=== PATIENT | female | born 1975 | race Caucasian/White ===

== ENCOUNTER 2017-12-27 04:53 | Inpatient (IN) | payer SELFPAY ==
[2017-12-27] VITALS (11 sets, daily range): BP systolic 112–162; BP diastolic 55–90; PULSE 85–119; RESP 18–24; TEMP 96.6–98.6; O2SAT 98–99
[~2017-12-27] VITALS: Ht 157.5 cm; Wt 84.0 kg
[2017-12-27] MEDS ORDERED: methylPREDNISolone SOD SUCC 125 MG/2 ML VIAL IV PUSH ONE (05:00)
[2017-12-27] MEDS ORDERED: SODIUM CHLORIDE 0.9% FLUSH 10 ML FLUSH IVF PRN (05:00)
--- NOTE | 2017-12-27 05:07 | PD ---
HPI Chief Complaint: Asthma attack Time Seen by Provider: 04:56 Travel History International Travel<30 days: No Contact w/Intl Traveler<30days: No History of Present Illness HPI Patient presents to the emergency department complaining of shortness of breath upon awakening this morning. She is a known asthmatic with her last asthma attack me being 3 months ago. States that she has a history of being intubated. Advises that she also did not have her emergency inhaler and has only been using her Symbicort. She believes that she had a fever on yesterday, but denies chest pain, edema, recent travel, chills. PFSH Social History Tobacco Use: No Allergies-Medications (Allergen,Severity, Reaction): Coded Allergies: promethazine (Verified Allergy, Severe, Hives, 12/27/17) Review of Systems Except as stated in HPI: all other systems reviewed are Neg Physical Exam Narrative GENERAL: In respiratory distress, audible wheezes without using stethoscope SKIN: Focused skin assessment warm/dry. HEAD: Atraumatic. Normocephalic. EYES: Pupils equal and round. No scleral icterus. No injection or drainage. ENT: No nasal bleeding or discharge. Mucous membranes pink and moist. NECK: Trachea midline. No JVD. CARDIOVASCULAR: Regular rate and rhythm. No murmur appreciated. RESPIRATORY: Positive retractions, poor air movement bilaterally, positive inspiratory and expiratory wheezing bilateral GASTROINTESTINAL: Abdomen soft, non-tender, nondistended. Hepatic and splenic margins not palpable. MUSCULOSKELETAL: No obvious deformities. No clubbing. No cyanosis. No edema. NEUROLOGICAL: Awake and alert. No obvious cranial nerve deficits. Motor grossly within normal limits. Normal speech. PSYCHIATRIC: Appropriate mood and affect; insight and judgment normal. Data Data Last Documented VS Vital Signs Date Time Temp Pulse Resp B/P (MAP) Pulse Ox O2 Delivery O2 Flow Rate FiO2 12/27/17 07:44 18 99 Room Air 12/27/17 07:44 12/27/17 07:42 98.2 85 12/27/17 05:00 2.00 Orders Orders Complete Blood Count With Diff (12/27/17 05:00) Comprehensive Metabolic Panel (12/27/17 05:00) Iv Access Insert/Monitor (12/27/17 05:00) Electrocardiogram (12/27/17 05:00) Ecg Monitoring (12/27/17 05:00) Oximetry (12/27/17 05:00) Oxygen Administration (12/27/17 05:00) Chest, Single Ap (12/27/17 05:00) Sodium Chloride 0.9% Flush (Ns Flush) (12/27/17 05:00) Methylprednisolone So Succ Inj (Solumedr (12/27/17 05:00) Albuterol-Ipratropium Neb (Duoneb Neb) (12/27/17 05:00) Albuterol-Ipratropium Neb (Duoneb Neb) (12/27/17 05:45) B-Type Natriuretic Peptide (12/27/17 06:55) Ckmb (Isoenzyme) Profile (12/27/17 06:55) D-Dimer (12/27/17 06:55) Prothrombin Time / Inr (Pt) (12/27/17 06:55) Act Partial Throm Time (Ptt) (12/27/17 06:55) Troponin I (12/27/17 06:55) Admit To Inpatient (12/27/17 ) Vital Signs (Adult) Q4H (12/27/17 07:38) Diet Regular Basic (12/27/17 Breakfast) Sodium Chloride 0.9% Flush (Ns Flush) (12/27/17 09:00) Sodium Chloride 0.9% Flush (Ns Flush) (12/27/17 07:45) Albuterol Neb (Albuterol Neb) (12/27/17 07:45) Albuterol-Ipratropium Neb (Duoneb Neb) (12/27/17 08:00) Resp Peak Flow Rate (12/27/17 ) Resp Oxygen Robin C Titrat 1-4 L (12/27/17 ) Methylprednisolone So Succ Inj (Solumedr (12/27/17 11:00) Enoxaparin Inj (Lovenox Inj) (12/27/17 09:00) Admit Order (Ed Use Only) (12/27/17 07:43) Labs Laboratory Tests Test 12/27/17 05:05 12/27/17 07:05 White Blood Count 6.5 TH/MM3 Red Blood Count 4.99 MIL/MM3 Hemoglobin 11.5 GM/DL Hematocrit 36.2 % Mean Corpuscular Volume 72.5 FL Mean Corpuscular Hemoglobin 23.0 PG Mean Corpuscular Hemoglobin Concent 31.7 % Red Cell Distribution Width 14.0 % Platelet Count 197 TH/MM3 Mean Platelet Volume 8.8 FL Neutrophils (%) (Auto) 50.5 % Lymphocytes (%) (Auto) 32.5 % Monocytes (%) (Auto) 10.6 % Eosinophils (%) (Auto) 5.1 % Basophils (%) (Auto) 1.3 % Neutrophils # (Auto) 3.3 TH/MM3 Lymphocytes # (Auto) 2.1 TH/MM3 Monocytes # (Auto) 0.7 TH/MM3 Eosinophils # (Auto) 0.3 TH/MM3 Basophils # (Auto) 0.1 TH/MM3 CBC Comment AUTO DIFF Differential Comment AUTO DIFF CONFIRMED Ovalocytes 1+ Blood Urea Nitrogen 13 MG/DL Creatinine 0.81 MG/DL Random Glucose 121 MG/DL Total Protein 6.5 GM/DL Albumin 3.1 GM/DL Calcium Level 8.1 MG/DL Alkaline Phosphatase 76 U/L Aspartate Amino Transf (AST/SGOT) 17 U/L Alanine Aminotransferase (ALT/SGPT) 17 U/L Total Bilirubin 0.2 MG/DL Sodium Level 142 MEQ/L Potassium Level 3.7 MEQ/L Chloride Level 109 MEQ/L Carbon Dioxide Level 23.8 MEQ/L Anion Gap 9 MEQ/L Estimat Glomerular Filtration Rate 78 ML/MIN Prothrombin Time 10.0 SEC Prothromb Time International Ratio 1.0 RATIO Activated Partial Thromboplast Time 25.9 SEC D-Dimer Quantitative (PE/DVT) 0.27 MG/L FEU Total Creatine Kinase 82 U/L Troponin I LESS THAN 0.02 NG/ML B-Type Natriuretic Peptide 45 PG/ML MDM Medical Decision Making Medical Screen Exam Complete: Yes Emergency Medical Condition: Yes Interpretation(s) Labs: Glucose elevated and hemoglobin slightly decreased; coags and d-dimer and cardiac enzymes within normal limits. EKG: Sinus rhythm, rate approximately 80, normal axis, no STEMI Last Impressions Chest X-Ray 12/27/17 0500 Signed Impressions: CONCLUSION: No acute cardiopulmonary process. Differential Diagnosis Pulmonary edema, asthma exacerbation, pleural effusion, ACS, PE Narrative Course Patient presents to the emergency department in respiratory distress and states symptoms are consistent with prior asthma exacerbations patient placed on charge authorizer, IV access obtained, 2 L oxygen via nasal cannula. 3 duo nebs order, 125 mg IV methylprednisolone, chest x-ray, EKG, and labs ordered. After 3 consecutive duo nebs in the emergency department and IV steroids patient states that she only marginally felt better. Order an additional 2 duo nebs after which she states that she felt better but still having shortness of breath. The wheezing is improved and air movement is better after the fifth DuoNeb. She is also complaining of sternal chest pain; therefore, cardiac enzymes and coags with d-dimer has been ordered. Patient will be admitted for chest pain and asthma exacerbation. Diagnosis Primary Impression: Asthma exacerbation Qualified Codes: J45.51 - Severe persistent asthma with (acute) exacerbation Additional Impression: Chest pain Qualified Codes: R07.9 - Chest pain, unspecified Admitting Information Admitting Physician Requests: Admit Condition: Stable Marlen Mcfadden MD Dec 27, 2017 05:07
[2017-12-27] MEDS: RESP: ALBUTEROL 2.5 MG/IPRATROPIUM 0.5 MG NEB (SCH) INH ×4 (05:09→05:56)
[2017-12-27 05:16] LABS: AUTOMATED NEUTROPHIL # 3.3 TH/MM3 (1.8-7.7); BASOPHIL # 0.1 TH/MM3 (0-0.2); BASOPHIL % 1.3 % (0.0-2.0); EOSINOPHIL # 0.3 TH/MM3 (0-0.4); EOSINOPHIL % 5.1 % (0.0-4.0); HEMATOCRIT 36.2 % (35.0-46.0); HEMOGLOBIN 11.5 GM/DL (11.6-15.3); LYMPH % 32.5 % (9.0-44.0); LYMPHOCYTE # 2.1 TH/MM3 (1.0-4.8); MEAN CELL VOLUME 72.5 FL (80.0-100.0); MEAN CORPUSCULAR HGB CONC 31.7 % (32.0-36.0); MEAN PLATELET VOLUME 8.8 FL (7.0-11.0); MONO % 10.6 % (0.0-8.0); MONOCYTE # 0.7 TH/MM3 (0-0.9); NEUT % 50.5 % (16.0-70.0); PLATELET COUNT 197 TH/MM3 (150-450); RED BLOOD COUNT 4.99 MIL/MM3 (4.00-5.30); WHITE BLOOD COUNT 6.5 TH/MM3 (4.0-11.0)
[2017-12-27 05:40] LABS: CHLORIDE 109 MEQ/L (98-107); SODIUM (NA) 142 MEQ/L (136-145)
[2017-12-27 05:43] LABS: ALBUMIN 3.1 GM/DL (3.4-5.0); BICARBONATE 23.8 MEQ/L (21.0-32.0); CALCIUM 8.1 MG/DL (8.5-10.1); GLUCOSE,RANDOM 121 MG/DL (74-106)
[2017-12-27 05:44] LABS: BLOOD UREA NITROGEN 13 MG/DL (7-18)
[2017-12-27 05:46] LABS: ALT (GPT) 17 U/L (10-53); AST (GOT) 17 U/L (15-37)
[2017-12-27 05:47] LABS: CREATININE 0.81 MG/DL (0.50-1.00); GLOMERULAR FILTRATION RATE 78 ML/MIN (>89)
[2017-12-27 05:48] LABS: TOTAL BILIRUBIN ADULT 0.2 MG/DL (0.2-1.0); TOTAL PROTEIN 6.5 GM/DL (6.4-8.2)
[2017-12-27 05:49] LABS: ALKALINE PHOSPHATASE 76 U/L (45-117)
--- NOTE | 2017-12-27 05:49 | RADRPT ---
EXAM DATE: 12/27/2017 5:36 AM EDT AGE/SEX: 42 years / Female INDICATIONS: Shortness of breath. CLINICAL DATA: This is the patient's initial encounter. Patient reports that signs and symptoms have been present for 1 day and indicates a pain score of 0/10. MEDICAL/SURGICAL HISTORY: None. None. COMPARISON: No prior [place] exams available for comparison. FINDINGS: A single AP view of the chest demonstrates the lungs to be symmetrically aerated without evidence of mass, infiltrate or effusion. The cardiomediastinal contours are unremarkable. Osseous structures a re intact. CONCLUSION: No acute cardiopulmonary process. Electronically signed by: Solo Rincon MD 12/27/2017 5:48 AM EDT
[2017-12-27 05:52] LABS: OVALOCYTES 1+ (NORMAL)
[2017-12-27 07:35] LABS: TROPONIN I LESS THAN 0.02 NG/ML (0.02-0.05)
[2017-12-27 07:39] LABS: D-DIMER 0.27 MG/L FEU (0.00-0.50)
[2017-12-27] MEDS ORDERED: SODIUM CHLORIDE 0.9% FLUSH 10 ML FLUSH IV FLUSH PRN (07:45)
[2017-12-27] MEDS ORDERED: RESP: ALBUTEROL 1.25 MG/3 ML NEB (PRN) NEB (07:45)
[2017-12-27] MEDS: SODIUM CHLORIDE 0.9% FLUSH 10 ML FLUSH IV FLUSH SCH ×2 (07:55→20:40)
[2017-12-27] MEDS: ENOXAPARIN SODIUM 40 MG/0.4 ML SYRINGE SQ SCH (07:55)
[2017-12-27] MEDS: RESP: ALBUTEROL 2.5 MG/IPRATROPIUM 0.5 MG NEB (SCH) NEB ×3 (09:43→19:24)
[2017-12-27] MEDS ORDERED: methylPREDNISolone SOD SUCC 125 MG/2 ML VIAL IV PUSH SCH (11:00)
--- NOTE | 2017-12-27 11:38 | HHI.HP ---
[facility] No Primary Care Physician Admission Diagnosis asthma exacerbation, chest pain Diagnoses: Chief Complaint: Shortness of breath Travel History International Travel<30 Days: No Contact w/Intl Traveler <30 Da: No Traveled to Known Affected Are: No History of Present Illness This patient is a 42-year-old female came in with acute respiratory failure secondary to likely asthma exacerbation. She had been taking Symbicort at home and noted that she had increased work of breathing over the last 24 hours. Patient was admitted through the emergency room. She reports several intubations during her lifetime. She has been intubated at least twice. Most recently in [place] in 2016. Recently she relocated from [place] and only had Symbicort as an inhaler or treatment. She was recently discharged from an emergency room for pneumonia. Patient had a fever previously but did not have any further fever. It was subjective fever. Patient did come in and received nebulized bronchodilators with minimal improvement. She was been recommended for further evaluation after increased work of breathing with ambulation. Review of Systems Constitutional: DENIES: Diaphoretic episodes, Fatigue, Fever, Weight gain, Weight loss, Chills, Dizziness, Change in appetite, Night Sweats Endocrine: DENIES: Abnorml menstrual pattern, Heat/cold intolerance, Polydipsia , Polyuria, Polyphagia Eyes: DENIES: Blurred vision, Diplopia, Eye inflammation, Eye pain, Vision loss , Photosensitivity, Double Vision Ears, nose, mouth, throat: DENIES: Tinnitus, Hearing loss, Vertigo, Nasal discharge, Oral lesions, Throat pain, Hoarseness, Ear Pain, Running Nose, Epistaxis, Sinus Pain, Toothache, Odynophagia Respiratory: COMPLAINS OF: Wheezing, Shortness of breath, DENIES: Apneas, Cough , Snoring, Hemoptysis, Sputum production Gastrointestinal: DENIES: Abdominal pain, Black stools, Bloody stools, Constipation, Diarrhea, Nausea, Vomiting, Difficulty Swallowing, Anorexia Genitourinary: DENIES: Abnormal vaginal bleeding, Dysmenorrhea, Dyspareunia, Sexual dysfunction, Urinary frequency, Urinary incontinence, Urgency, Hematuria , Dysuria, Nocturia, Vaginal discharge Musculoskeletal: DENIES: Joint pain, Muscle aches, Stiffness, Joint Swelling, Back pain, Neck pain Integumentary: DENIES: Abnormal pigmentation, Pruritus, Rash, Nail changes, Breast masses, Breast skin changes, Nipple discharge Hematologic/lymphatic: DENIES: Bruising, Lymphadenopathy Immunologic/allergic: DENIES: Eczema, Urticaria Neurologic: DENIES: Abnormal gait, Headache, Localized weakness, Paresthesias, Seizures, Speech Problems, Tremor, Poor Balance Psychiatric: DENIES: Anxiety, Confusion, Mood changes, Depression, Hallucinations, Agitation, Suicidal Ideation, Homicidal Ideation, Delusions Except as stated in HPI: all other systems reviewed are Neg Past Family Social History Past Medical History Asthma Past Surgical History Denies Reported Medications Symbicort Allergies: Coded Allergies: promethazine (Verified Allergy, Severe, Hives, 12/27/17) Active Ordered Medications Reviewed in the EMR Family History Father is alive and well at 85, mother from ovarian cancer at 45 Social History Recently relocated from [place] In July Physical Exam Vital Signs Vital Signs Date Time Temp Pulse Resp B/P (MAP) Pulse Ox O2 Delivery O2 Flow Rate FiO2 12/27/17 09:45 98 21 12/27/17 09:00 98.3 90 20 129/65 (86) 98 12/27/17 08:45 12/27/17 07:44 18 99 Room Air 12/27/17 07:44 99 Room Air 12/27/17 07:42 98.2 85 18 135/70 (91) 99 Room Air 12/27/17 05:00 111 22 162/85 (110) 98 Nasal Cannula 2.00 12/27/17 05:00 98 Room Air 12/27/17 05:00 98 2.00 12/27/17 05:00 98.6 89 24 150/90 (110) 99 Physical Exam GENERAL: This is a well-nourished, well-developed patient, in no apparent distress. SKIN: No rashes, ecchymoses or lesions. Cool and dry. HEAD: Atraumatic. Normocephalic. No temporal or scalp tenderness. EYES: Pupils equal round and reactive. Extraocular motions intact. No scleral icterus. No injection or drainage. ENT: Nose without bleeding, purulent drainage or septal hematoma. Throat without erythema, tonsillar hypertrophy or exudate. Uvula midline. Airway patent. NECK: Trachea midline. No JVD or lymphadenopathy. Supple, nontender, no meningeal signs. CARDIOVASCULAR: Regular rate and rhythm without murmurs, gallops, or rubs. RESPIRATORY: Clear to auscultation. Breath sounds equal bilaterally. No wheezes , rales, or rhonchi. GASTROINTESTINAL: Abdomen soft, non-tender, nondistended. No hepato-splenomegaly , or palpable masses. No guarding. MUSCULOSKELETAL: Extremities without clubbing, cyanosis, or edema. No joint tenderness, effusion, or edema noted. No calf tenderness. Negative Homans sign bilaterally. NEUROLOGICAL: Awake and alert. Cranial nerves II through XII intact. Motor and sensory grossly within normal limits. Five out of 5 muscle strength in all muscle groups. Normal speech. Laboratory Laboratory Tests Test 12/27/17 05:05 12/27/17 07:05 White Blood Count 6.5 Red Blood Count 4.99 Hemoglobin 11.5 Hematocrit 36.2 Mean Corpuscular Volume 72.5 Mean Corpuscular Hemoglobin 23.0 Mean Corpuscular Hemoglobin Concent 31.7 Red Cell Distribution Width 14.0 Platelet Count 197 Mean Platelet Volume 8.8 Neutrophils (%) (Auto) 50.5 Lymphocytes (%) (Auto) 32.5 Monocytes (%) (Auto) 10.6 Eosinophils (%) (Auto) 5.1 Basophils (%) (Auto) 1.3 Neutrophils # (Auto) 3.3 Lymphocytes # (Auto) 2.1 Monocytes # (Auto) 0.7 Eosinophils # (Auto) 0.3 Basophils # (Auto) 0.1 CBC Comment AUTO DIFF Differential Comment AUTO DIFF CONFIRMED Ovalocytes 1+ Blood Urea Nitrogen 13 Creatinine 0.81 Random Glucose 121 Total Protein 6.5 Albumin 3.1 Calcium Level 8.1 Alkaline Phosphatase 76 Aspartate Amino Transf (AST/SGOT) 17 Alanine Aminotransferase (ALT/SGPT) 17 Total Bilirubin 0.2 Sodium Level 142 Potassium Level 3.7 Chloride Level 109 Carbon Dioxide Level 23.8 Anion Gap 9 Estimat Glomerular Filtration Rate 78 Prothrombin Time 10.0 Prothromb Time International Ratio 1.0 Activated Partial Thromboplast Time 25.9 D-Dimer Quantitative (PE/DVT) 0.27 Total Creatine Kinase 82 Troponin I LESS THAN 0.02 B-Type Natriuretic Peptide 45 Result Diagram: 12/27/17 0505 12/27/17 0505 Imaging Last Impressions Chest X-Ray 12/27/17 0500 Signed Impressions: CONCLUSION: No acute cardiopulmonary process. Caprini VTE Risk Assessment Caprini VTE Risk Assessment: No/Low Risk (score <= 1) Caprini Risk Assessment Model Point Value = 1 Point Value = 2 Point Value = 3 Point Value = 5 Age 41-60 Minor surgery BMI > 25 kg/m2 Swollen legs Varicose veins or History of unexplained or recurrent spontaneous Oral contraceptives or hormone replacement Sepsis (< 1 month) Serious lung disease, including pneumonia (< 1 month) Abnormal pulmonary function Acute myocardial infarction Congestive heart failure (< 1 month) History of inflammatory bowel disease Medical patient at bed rest Age 61-74 Arthroscopic surgery Major open surgery (> 45 min) Laparoscopic surgery (> 45 min) Malignancy Confined to bed (> 72 hours) Immobilizing plaster cast Central venous access Age >= 75 History of VTE Family history of VTE Factor V Leiden Prothrombin [id number] Lupus anticoagulant Anticardiolipin antibodies Elevated serum homocysteine Heparin-induced thrombocytopenia Other congenital or acquired thrombophilia Stroke (< 1 month) Elective arthroplasty Hip, pelvis, or leg fracture Acute spinal cord injury (< 1 month) Prophylaxis Regimen Total Risk Factor Score Risk Level Prophylaxis Regimen 0-1 Low Early ambulation 2 Moderate Order ONE of the following: *Sequential Compression Device (SCD) *Heparin 5000 units SQ BID 3-4 Higher Order ONE of the following medications: *Heparin 5000 units SQ TID *Enoxaparin/Lovenox 40 mg SQ daily (WT < 150 kg, CrCl > 30 mL/min) *Enoxaparin/Lovenox 30 mg SQ daily (WT < 150 kg, CrCl > 10-29 mL/min) *Enoxaparin/Lovenox 30 mg SQ BID (WT < 150 kg, CrCl > 30 mL/min) AND/OR *Sequential Compression Device (SCD) 5 or more Highest Order ONE of the following medications: *Heparin 5000 units SQ TID (Preferred with Epidurals) *Enoxaparin/Lovenox 40 mg SQ daily (WT < 150 kg, CrCl > 30 mL/min) *Enoxaparin/Lovenox 30 mg SQ daily (WT < 150 kg, CrCl > 10-29 mL/min) *Enoxaparin/Lovenox 30 mg SQ BID (WT < 150 kg, CrCl > 30 mL/min) AND *Sequential Compression Device (SCD) Assessment and Plan Problem List: (1) Asthma exacerbation ICD Code: J45.901 - Unspecified asthma with (acute) exacerbation Status: Acute Plan: continue Nebulized bronchodilators Continue IV steroids Follow peak flow O2 as needed Activity ad terra. Code Status Full code Discussed Condition With Full code full code patient, ER MD Dr. De La Torre Physician Certification 2 Midnight Certification Type: Admission for Inpatient Services Order for Inpatient Services The services are ordered in accordance with Medicare regulations or non- Medicare payer requirements, as applicable. In the case of services not specified as inpatient-only, they are appropriately provided as inpatient services in accordance with the 2-midnight benchmark. Estimated LOS (days): 2 2 days is the estimated time the patient will need to remain in the hospital, assuming treatment plan goals are met and no additional complications. Post-Hospital Plan: Home Problem Qualifiers (1) Asthma exacerbation: Qualified Codes: J45.51 - Severe persistent asthma with (acute) exacerbation Lynne Pang MD Dec 27, 2017 11:38
--- NOTE | 2017-12-27 14:37 | EKG ---
Date Performed: 12/27/2017 Time Performed: 05:07:40 PTAGE: 42 years EKG: Sinus rhythm Within normal limits NO PREVIOUS TRACING DOCTOR: Toan Ellsworth Interpretating Date/Time 12/27/2017 14:35:38
[2017-12-27] MEDS ORDERED: IBUPROFEN 600 MG TAB PO ONE (15:45)
[2017-12-27] MEDS: methylPREDNISolone SOD SUCC 125 MG/2 ML VIAL IV PUSH SCH (20:39)
[2017-12-27] MEDS: BUDESONIDE-FORMOTEROL 80/4.5 MCG INHALER INH SCH (20:40)
[2017-12-28] MEDS ORDERED: ACETAMINOPHEN 325 MG TAB PO PRN (01:15)
[2017-12-28] MEDS: methylPREDNISolone SOD SUCC 125 MG/2 ML VIAL IV PUSH SCH (05:18)
[2017-12-28] MEDS: RESP: ALBUTEROL 2.5 MG/IPRATROPIUM 0.5 MG NEB (SCH) NEB (07:17)
[2017-12-28 07:20] VITALS: O2SAT 99
[2017-12-28 07:50] VITALS: BP 130/68; PULSE 110; RESP 20; TEMP 96.6; O2SAT 96
[2017-12-28] MEDS ORDERED: PRED10PA PO (07:58)
[2017-12-28] MEDS ORDERED: VENTAER INH (07:58)
--- NOTE | 2017-12-28 07:58 | HHI.DCPOC ---
Discharge Care Plan Diagnosis: (1) Asthma exacerbation Goals to Promote Your Health * To prevent worsening of your condition and complications * To maintain your health at the optimal level Directions to Meet Your Goals Take your medications as prescribed Follow your dietary instruction Follow activity as directed Keep your appointments as scheduled Take your immunizations and boosters as scheduled If your symptoms worsen call your PCP, if no PCP go to Urgent Care Center or Emergency Room Smoking is Dangerous to Your Health. Avoid second hand smoke Call the 24-hour hour crisis hotline for domestic abuse at Lynne Pang MD Dec 28, 2017 07:58
[2017-12-28] MEDS: BUDESONIDE-FORMOTEROL 80/4.5 MCG INHALER INH SCH (08:20)
[2017-12-28] MEDS: ENOXAPARIN SODIUM 40 MG/0.4 ML SYRINGE SQ SCH (08:21)
[2017-12-28] MEDS: SODIUM CHLORIDE 0.9% FLUSH 10 ML FLUSH IV FLUSH SCH (08:22)
--- NOTE | 2017-12-28 09:13 | HHI.DS ---
Discharge Summary Admission Date Dec 27, 2017 at 07:44 Discharge Date: Dec 28, 2017 Admitting Diagnosis asthma exacerbation, chest pain (1) Asthma exacerbation ICD Code: J45.901 - Unspecified asthma with (acute) exacerbation Status: Acute Procedures None Brief History - From Admission This patient is a 42-year-old female came in with acute respiratory failure secondary to likely asthma exacerbation. She had been taking Symbicort at home and noted that she had increased work of breathing over the last 24 hours. Patient was admitted through the emergency room. She reports several intubations during her lifetime. She has been intubated at least twice. Most recently in [place] in 2015. Recently she relocated from [place] and only had Symbicort as an inhaler or treatment. She was recently discharged from an emergency room for pneumonia. Patient had a fever previously but did not have any further fever. It was subjective fever. Patient did come in and received nebulized bronchodilators with minimal improvement. She was been recommended for further evaluation after increased work of breathing with ambulation. CBC/BMP: 12/27/17 0505 12/27/17 0505 Significant Findings Laboratory Tests Test 12/27/17 05:05 12/27/17 07:05 Hemoglobin 11.5 GM/DL (11.6-15.3) Mean Corpuscular Volume 72.5 FL (80.0-100.0) Mean Corpuscular Hemoglobin 23.0 PG (27.0-34.0) Mean Corpuscular Hemoglobin Concent 31.7 % (32.0-36.0) Monocytes (%) (Auto) 10.6 % (0.0-8.0) Eosinophils (%) (Auto) 5.1 % (0.0-4.0) Ovalocytes 1+ (NORMAL) Random Glucose 121 MG/DL (74-106) Albumin 3.1 GM/DL (3.4-5.0) Calcium Level 8.1 MG/DL (8.5-10.1) Chloride Level 109 MEQ/L (98-107) Estimat Glomerular Filtration Rate 78 ML/MIN (>89) Troponin I LESS THAN 0.02 NG/ML Imaging Last Impressions Chest X-Ray 12/27/17 0500 Signed Impressions: CONCLUSION: No acute cardiopulmonary process. PE at Discharge GENERAL: This is a well-nourished, well-developed patient, in no apparent distress. CARDIOVASCULAR: Regular rate and rhythm without murmurs, gallops, or rubs. RESPIRATORY: Clear to auscultation. Breath sounds equal bilaterally. No wheezes , rales, or rhonchi. GASTROINTESTINAL: Abdomen soft, non-tender, nondistended. Normal active bowel sounds MUSCULOSKELETAL: Extremities without clubbing, cyanosis, or edema. NEURO: Alert & Oriented x4 to person, place, time, situation. Moves all ext x4 Pt update on day of discharge Patient greatly improved overnight. Discharge plan discussed with patient who is agreeable Hospital Course Patient was seen and treated acute asthma exacerbation. Education was provided. She improved with IV steroids as well as nebulizers. She was discharged home Pt Condition on Discharge: Good Discharge Disposition: Discharge Home Discharge Time: <= 30 minutes Discharge Instructions DIET: Follow Instructions for: As Tolerated, No Restrictions Activities you can perform: Regular-No Restrictions Follow up Referrals: PCP Follow-up - 1 Week New Medications: Albuterol 18 GM Inh (Ventolin Hfa 18 GM Inh) 90 Mcg/Act Aer 1 PUFF INH Q4H PRN for SHORTNESS OF BREATH, #1 INHALER 0 Refills Prednisone (21) 10 mg tab Dose Pack (Prednisone (21) 10 mg tab Dose Pack) 10 Mg Pack 10 MG PO DIRECTED for Inflammation, #1 DSPK 0 Refills Lynne Pang MD Dec 28, 2017 09:13
== END 2017-12-28 11:07 | disposition home or self-care (01) | DRG 202 ==
LOC: PHED 04:53 → PHEDA 07:44 → PH3A 08:54
PROVIDERS: ADMIT Hospitalist; ATTEND Hospitalist
DX: J45.51 Severe persistent asthma with (acute) exacerbation (principal); J96.00 Acute respiratory failure, unspecified whether with hypoxia or hypercapnia
CPT/HCPCS: 71045; 80053; 82550; 83880; 84484; 85025; 85379; 85610; 85730; 93005; 94640; 94664; 94799; 96374; J1650; J2930